=== PATIENT | female | born 1995 | race Caucasian/White ===

== ENCOUNTER 2018-08-13 07:14 | Inpatient (IN) | payer BC ==
--- NOTE | 2018-08-13 07:25 | ED ---
Abdominal Pain/Female - HPI Summary HPI Summary: Pt is a 23 y/o female who presents to the ED c/o abdominal pain. The pain began last night at 23:00, is located in her upper abdomen, and is rated a 9/10 in severity. Pt notes that 4 hours prior to the onset of pain she ate meatloaf and mashed potatoes. She also c/o nausea, but denies any vomiting, diarrhea, or urinary symptoms. She took Gas-X for the pain without relief. Pt denies any prior abdominal surgeries. Her mother had a cholecystectomy. LNMP 2 weeks ago. PMHx anemia. - History of Current Complaint Chief Complaint: EDAbdPain Stated Complaint: UPPER ABD PAIN/BACK PAIN Time Seen by Provider: 08/13/18 07:17 Hx Obtained From: Patient Onset/Duration: Gradual Onset, Lasting Days - last night at 23:00, Still Present Timing: Constant Severity Currently: Severe Pain Intensity: 9 Pain Scale Used: 0-10 Numeric Location: Other - upper abdomen Radiates: No Aggravating Factor(s): Nothing Alleviating Factor(s): Nothing Associated Signs and Symptoms: Positive: Nausea. Negative: Urinary Symptoms, Vomiting, Diarrhea Allergies/Adverse Reactions: Allergies Allergy/AdvReac Type Severity Reaction Status Date / Time No Known Allergies Allergy Verified 08/13/18 07:19 Home Medications: Home Medications Simethicone [Gas-X] 125 mg PO TID PRN 08/13/18 [History Confirmed 08/13/18] PMH/Surg Hx/FS Hx/Imm Hx Endocrine/Hematology History: Reports: Hx Anemia Denies: Hx Diabetes Cardiovascular History: Denies: Hx Hypertension, Hx Pacemaker/ICD Respiratory History: Reports: Hx Asthma Sensory History: Denies: Hx Hearing Aid Psychiatric History: Denies: Hx Panic Disorder - Surgical History Surgery Procedure, Year, and Place: LT ANKLE 02/2015 LIGAMENT REPAIR; Infectious Disease History: No Infectious Disease History: Denies: Traveled Outside the [place] in Last 30 Days - Family History Known Family History: Positive: Other - gallbladder dz - Social History Alcohol Use: None Hx Substance Use: No Substance Use Type: Reports: None Hx Tobacco Use: No Smoking Status (MU): Never Smoked Tobacco Review of Systems Positive: Abdominal Pain, Nausea. Negative: Vomiting, Diarrhea Genitourinary: Negative All Other Systems Reviewed And Are Negative: Yes Physical Exam - Summary Physical Exam Summary: Appearance: Well appearing, no pain distress, morbid obesity Skin: warm, dry, reflects adequate perfusion Head/face: normal Eyes: EOMI, KALA ENT: mucous membranes moist Neck: supple, non-tender Respiratory: CTA, breath sounds present Cardiovascular: RRR, pulses symmetrical Abdomen: soft, epigastric and RUQ tenderness with guarding, no rebound Bowel Sounds: present Musculoskeletal: normal, strength/ROM intact Neuro: normal, sensory motor intact, A&Ox3 Triage Information Reviewed: Yes Vital Signs On Initial Exam: Initial Vitals Temp Pulse Resp BP Pulse Ox 96.6 F 95 18 161/79 100 08/13/18 07:15 08/13/18 07:15 08/13/18 07:15 08/13/18 07:15 08/13/18 07:15 Vital Signs Reviewed: Yes Diagnostics - Vital Signs Vital Signs Temp Pulse Resp BP Pulse Ox 08/13/18 07:15 96.6 F 95 18 161/79 100 - Laboratory Result Diagrams: 08/13/18 08:32 08/13/18 08:32 Lab Statement: Any lab studies that have been ordered have been reviewed, and results considered in the medical decision making process. - Ultrasound No standard instances Ultrasound Interpretation Completed By: Radiologist Summary of Ultrasound Findings: Gallbladder US: 1. LIMITED STUDY. 2. HEPATOMEGALY WITH FATTY INFILTRATION OF THE LIVER. 3. CHOLELITHIASIS WITHOUT SONOGRAPHIC FEATURES OF ACUTE CHOLECYSTITIS. 4. THERE IS DILATATION OF THE COMMON DUCT UP TO 1.2 CM. ED physician reviewed radiology report. Abdominal Pain Fem Course/Dx - Course Course Of Treatment: Nurse's notes reviewed. Patient with epigastric discomfort and some right upper quadrant pain. Mild pallor confirmed with anemia with hemoglobin 7.6. Patient has a history of anemia that was never fully investigated. She does occasionally have heavy periods. Epigastric discomfort could represent peptic ulcer disease. No melena. Gallbladder ultrasound shows dilated biliary duct but LFTs are normal. GI consultation is pending. Discussed with hospitalist who will admit. - Diagnoses Differential Diagnosis: Positive: Bowel Obstruction, Gall Bladder Disease, Peptic Ulcer Disease, , Renal Colic, Urinary Tract Infection Provider Diagnoses: Anemia, Epigastric abdominal pain, Dilated bile duct, Morbid obesity - Provider Notifications Discussed Care Of Patient With: Dima Benavidez Time Discussed With Above Provider: 09:33 Instructed by Provider To: Admit As Inpatient - Dr. Benavidez will come see the pt in the ED. Discharge - Sign-Out/Discharge Documenting (check all that apply): Patient Departure - Admit Patient Received Moderate/Deep Sedation with Procedure: No - Discharge Plan Condition: Fair Disposition: ADMITTED TO [facility] - Billing Disposition and Condition Condition: FAIR Disposition: Admitted to [facility] - Attestation Statements Document Initiated by Sorayaibe: Yes Documenting Scribe: Aliya Man Provider For Whom Cathy is Documenting (Include Credential): Roberth Moore MD Scribe Attestation: Aliya Peace, scribed for Roberth Moore MD on 08/13/18 at 1253. Scribe Documentation Reviewed: Yes Provider Attestation: The documentation as recorded by the Aliya [email or web address] accurately reflects the service I personally performed and the decisions made by Roberth bautista MD Status of Scribe Document: Viewed
[2018-08-13] MEDS ORDERED: NS 0.9% 1000 ML** 1,000 ML IV ONE (07:26)
[2018-08-13] MEDS ORDERED: Famotidine TAB* 20 MG PO ONE (07:27)
[2018-08-13] MEDS ORDERED: Al Hydrox/Mg Hydrox/Simet LIQ* 30 ML UDC PO ONE (07:27)
[2018-08-13] MEDS ORDERED: Ketorolac INJ* 30 MG/ML 1 ML VIAL IV PUSH ONE (07:27)
[2018-08-13] MEDS ORDERED: Ondansetron INJ* 2 MG/ML VIAL IV ONE (07:27)
[2018-08-13 08:44] LABS: ABS Basophils 0 10^3/ul (0-0.2); ABS Eosinophils 0.1 10^3/ul (0-0.6); ABS Lymphocytes 0.9 10^3/ul (1.0-4.8); ABS Monocytes 0.2 10^3/ul (0-0.8); ABS Neutrophils 3.5 10^3/ul (1.5-7.7); ABS Nucleated RBC 0 10^3/ul; Eosinophil % 1.4 %; Hematocrit 25 % (35-47); Hemoglobin 7.8 g/dl (12.0-16.0); Lymphocyte % 18.8 %; Mean Corpuscular HGB Conc 31 g/dl (31-36); Mean Corpuscular Hemoglobin 24 pg (27-31); Mean Corpuscular Volume 78 fL (80-97); Mean Platelet Volume 7.2 fL (7.4-10.4); Nucleated Red Blood Cells % 0.1; Platelet Count 297 10^3/ul (150-450); Red Blood Count 3.21 10^6/ul (4.00-5.40); Red Cell Distribution Width 19 % (10.5-15); White Blood Count 4.7 10^3/ul (3.5-10.8)
[2018-08-13 09:04] LABS: ALT 41 U/L (7-52); AST 23 U/L (13-39); Albumin 4.1 g/dL (3.2-5.2); Albumin/Globulin Ratio 1.2 (1-3); Alkaline Phosphatase 68 U/L (34-104); Anion Gap 8 mmol/L (2-11); BUN/Creatinine Ratio 14.8 (8-20); Blood Urea Nitrogen 9 mg/dL (6-24); C Reactive Protein 18.24 mg/L (<8.01); CO2 Carbon Dioxide 24 mmol/L (22-32); Chloride 102 mmol/L (101-111); EGFR African American 144.6 (>60); EGFR Non-African American 119.5 (>60); Globulin 3.5 g/dL (2-4); Glucose 129 mg/dL (70-100); Potassium 4.2 mmol/L (3.5-5.0); Sodium 134 mmol/L (135-145); Total Protein 7.6 g/dL (6.4-8.9)
[2018-08-13 09:08] LABS: HCG Pregnancy < 0.60 mIU/mL
[2018-08-13 09:45] LABS: Urine Appearance Clear; Urine Bacteria Absent (Absent); Urine Bilirubin Negative (Negative); Urine Blood 3+ (Negative); Urine Color Yellow; Urine Glucose Negative (Negative); Urine Ketones Negative (Negative); Urine Nitrite Negative (Negative); Urine Protein Negative (Negative); Urine Red Blood Cell 3+(>10/hpf) (Absent); Urine Squamous Epithelial Cell Present (Absent); Urine Urobilinogen Negative (Negative); Urine White Blood Cell 2+(11-20/hpf) (Absent)
[2018-08-13] MEDS ORDERED: Acetaminophen TAB* 325 MG PO PRN (10:10)
[2018-08-13] MEDS ORDERED: Ondansetron INJ* 2 MG/ML VIAL IV PRN (10:10)
[2018-08-13] MEDS ORDERED: Al Hydrox/Mg Hydrox/Simet LIQ* 30 ML UDC PO PRN (10:10)
[2018-08-13 10:19] LABS: Corrected Retic Count 3.2 % (0.5-1.5); Hematocrit for Retic CNT 25 % (35-47); Immature Retic Fraction 0.58; RBC Retic Count 3.19 10^6/ul (4.6-6.2)
[2018-08-13] MEDS ORDERED: Albuterol HFA INHALER* 8 gm MDI INH PRN (10:27)
[2018-08-13 10:30] LABS: % Iron Saturation 4 % (15-55); Iron 22 ug/dL (50-212); Total Iron Binding Capacity 584 mcg/dL (250-450); Transferrin 417 mg/dL (203-362)
[2018-08-13 10:45] LABS: TSH (Thyroid Stimulating Horm) 4.11 mcIU/mL (0.34-5.60)
[2018-08-13 10:50] LABS: Ferritin 6.7 ng/mL (11-307)
--- NOTE | 2018-08-13 11:48 | HP ---
ADMISSION HISTORY AND PHYSICAL: DATE OF ADMISSION: 08/13/18 PRIMARY CARE PROVIDER: Mackenzie Almaguer NP in [facility]. Her telephone is [phone], her fax is [phone]. HEALTHCARE PROXY: Mother present during admission H and P. CODE STATUS: Full. HISTORY OBTAINED: From interview with the patient, also discussion with Mackenzie Almaguer. RELIABILITY: Fair. CHIEF COMPLAINT: Abdominal pain. HISTORY OF PRESENT ILLNESS: This is a 23-year-old female with past medical history of iron-deficiency anemia, has been on and off iron usually limited by side effects, but has been on the slow release for the last 6 months. She had been in her usual state of health and then last night she ate dinner on 7 p.m. and around 11 p.m. developed crescendo abdominal pain that then became constant , described as stabbing and burning, radiating through her stomach towards her back, described as 10/10. She did have some nausea and some shortness of breath and lightheadedness, but no vomiting. Her stools were yellow but then had become loose. She has had much more flatulence last night than this morning but now improving. She presented to the emergency room, received Maalox , Zofran, Pepcid, and Toradol and was seen by this author. Pain was largely improved down from a 10-4/10 and was comfortable in bed. She reports she had anemia in the past as low enough that caused shortness of breath approximately 7 years prior. She has declined pelvic ultrasound according to Mackenzie Almaguer. She describes heavy period lasting 6 to 7 days. She 1, 2, or 3 pads per day , but does produce clots. She tried oral contraceptives, but felt ill with nausea and vomiting and has discontinued them. She denied bright red blood per rectum and melena. I did discuss with Mackenzie Almaguer who reported the patient's last hemoglobin was 9.3 with hematocrit of 37 and an iron of 32 in September 2016. Additionally, at that time her TSH was 5.51. The patient has had no additional followup since that time. PAST MEDICAL HISTORY: Include; 1. Mild intermittent asthma. 2. She had a left tib-fib fracture. 3. Left ankle surgery. 4. Iron-deficiency anemia. MEDICATIONS: Albuterol p.r.n. and slow release iron. ALLERGIES: No known drug allergies. FAMILY HISTORY: Her grandfather had CAD and maternal grandmother had lung cancer. 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 She has no tobacco history. She drinks approximately 10 drinks of alcohol per week. No illicits. REVIEW OF SYSTEMS: As per HPI, otherwise all other systems negative. PHYSICAL EXAMINATION GENERAL: Sitting up in bed, interactive, pleasant, in no apparent distress. VITAL SIGNS: In the emergency room, 143/89, heart rate 79, respiratory rate is 18, she is 97% on room air. T-max 97.5. T-low is 96.6. HEENT: Oropharynx is clear. She has moist mucous membranes. Sclerae are anicteric. LUNGS: Clear to auscultation. HEART: She has regular rate and rhythm. She has no murmurs, rubs, or gallops. ABDOMEN: Soft. Positive bowel sounds. Nondistended. She has tenderness to deep palpation in the epigastric region. No rebound or guarding. EXTREMITIES: Warm and well-perfused. No clubbing, cyanosis, or edema. NEUROLOGIC: Cranial nerves II through XII are intact. PSYCH: She has no apparent anxiety, agitation, or depression. LABORATORY DATA: Data reviewed. Gallbladder ultrasound notable for common bile duct 1.2 cm without appreciable intrahepatic biliary ductal dilatation. The gallbladder was distended with shadowing echogenic foci consistent with gallstones, but no gallbladder wall thickening or pericholecystic fluid. ASSESSMENT AND PLAN: This is a 23-year-old female presenting with abdominal pain found with iron-deficiency anemia. 1. Abdominal pain associated with crescendo abdominal pain, improved with Maalox and Toradol in the setting of loose stools as well as increased flatulence. The highest on my differential is a gastroenteritis in the setting of the loose stools. Lower risk of pancreatitis in the setting of normal limit of lipase. No evidence of cholecystitis on right upper quadrant. Doubt appendicitis with rapid improvement in pain and location and quality of pain. We will forgo CAT scan now, observe the patient in the hospital overnight. Plan on CAT scan if pain does not resolve or worsens. N.p.o. at this time as ED consult and Gastroenterology. No plan for endoscopy. We will advance to clear diet then advance as tolerated. I believe the anemia and abdominal pain are separate issues given the chronicity of her anemia. 2. Microcytic anemia, add iron labs including ferritin and reticulocyte count to ED labs. Repeat hemoglobin and hematocrit in the morning, type and cross. GI has been consulted. The patient has declined pelvic ultrasound in the past. We recommend again at this time. The patient is to consider. 3. Obesity, noted stable. 4. Mild intermittent asthma, stable, on albuterol p.r.n. 5. Dilated common bile duct of 1.2 cm - noted, no intervention at this time discussed with Mackenzie Almaguer as well. 6. Code status is full. 7. DVT prophylaxis, low risk, ambulate ad shaye. 8. History of elevated TSH 5.51 in September 2016, add TSH to ED labs as well and follow. [id number]/[facility] #: [id number] ZARA
--- NOTE | 2018-08-13 18:54 | CONS ---
GASTROENTEROLOGY CONSULT: DATE OF CONSULT: 08/13/18 CONSULTING PHYSICIANS: Dr. Dima Benavidez; Mackenzie Almaguer NP, [place], [place]. REASON FOR CONSULT: Epigastric pain and profound microcytic anemia. HISTORY: This 23-year-old woman came to the emergency room with unrelenting upper abdominal pain that she said radiated along the right costal margin and to the back. It started around 11 o'clock last night. She had felt fine all day long and had a typical dinner of meatloaf, mashed potatoes, and then a couple of cookies around 8 p.m. She was okay until 10:30 or 11 when she noted this severe pain and could not find a comfortable position. It was there all night. She did have a normal solid bowel movement during the day and then another at 3 a.m. There was no blood in it. She characteristically does not see any blood. She has never had anything like this before. She does not have stomach problems usually and does not take any acid blockers. She denies acid indigestion or heartburn. She does take some Advil every 2 weeks or about twice a month for headache. It always works. She never uses an aspirin product. She has been anemic for quite some time and cannot tolerate taking regular oral iron. A cousin who is a pharmacist from [place] suggested that she take slow iron and she began that about 6 months ago, she says. Her last recorded iron in the [facility] system was hemoglobin 9.25 September 2016 when she was last seen at her primary office. Her menses are 6 to 7 days, not felt by her to be all that profuse. She had not had a pelvic ultrasound in quite some time and report is pending on one now. In the emergency room, her labs showed a normal white count of 4.7, platelets 297, LFTs normal, and profound anemia with hemoglobin 7.8, MCV 78. Iron saturation 4% (22 iron and TIBC 584 with ferritin 6.7). LFTs are normal. Albumin is 4.1. PAST MEDICAL HISTORY: 1. Morbid obesity. 2. Asthma - she has an inhaler for p.r.n. use. SOCIAL HISTORY: She lives in [place]. She is a student. Her mother accompanies her today. Her brother works in the emergency room and another relative is an RN in the intensive care unit. REVIEW OF SYSTEMS: No history of cardiac, hepatic, or renal disease. She has never had syncope or seizures. Her bowel habit is regular daily and without any bleeding. She has had no recent fractures. PHYSICAL EXAM: She is a somewhat pale, morbidly obese woman, lying in bed. Her mother is with her, assisting in the history. HEENT exam shows no icterus. Mucous membranes are pale, but otherwise normal. She has no adenopathy. Her lungs are clear, but breath sounds are distant. They are symmetric. Heart sounds are regular. Breast and pelvic Exams: Deferred. Rectal: Deferred. The abdomen is obese with normal distant bowel sounds and panniculus and there is no focal tenderness. She says she is hungry. Extremities show symmetric obesity and 1+ pitting edema at the ankles. Popliteal pulse was intact. DIAGNOSTIC STUDIES: Ultrasound - right upper quadrant shows gallstones and a 12 mm common duct. The liver is large and steatotic. IMPRESSION: Abrupt abdominal pain, which is clinically consistent with biliary colic and the ultrasound would tend to confirm that. Her hemoglobin is low enough to be a potential issue in formulating a surgical plan. Intravenous iron would be an attractive option and could be an accelerated schedule over the next several weeks. [id number]/[facility] #: [id number] [facility]
[2018-08-13] MEDS: Ketorolac INJ* 30 MG/ML 1 ML VIAL IV PUSH PRN (19:55)
[2018-08-14] MEDS: Iron Sucrose* 200 MG in NS 0.9% 100 ML* 100 ML IVPB SCH (01:09)
[2018-08-14 06:55] LABS: ABS Basophils 0 10^3/ul (0-0.2); ABS Eosinophils 0.1 10^3/ul (0-0.6); ABS Lymphocytes 0.8 10^3/ul (1.0-4.8); ABS Monocytes 0.2 10^3/ul (0-0.8); ABS Neutrophils 1.6 10^3/ul (1.5-7.7); ABS Nucleated RBC 0 10^3/ul; Eosinophil % 2.8 %; Hematocrit 21 % (35-47); Hemoglobin 6.4 g/dl (12.0-16.0); Lymphocyte % 31.1 %; Mean Corpuscular HGB Conc 31 g/dl (31-36); Mean Corpuscular Hemoglobin 24 pg (27-31); Mean Corpuscular Volume 77 fL (80-97); Nucleated Red Blood Cells % 0.2; Platelet Count 209 10^3/ul (150-450); Red Blood Count 2.67 10^6/ul (4.00-5.40); Red Cell Distribution Width 18 % (10.5-15); White Blood Count 2.7 10^3/ul (3.5-10.8)
[2018-08-14 07:08] LABS: BUN/Creatinine Ratio 14.9 (8-20); Calcium 8.4 mg/dL (8.6-10.3); EGFR African American 129.8 (>60); EGFR Non-African American 107.2 (>60); Potassium 4.2 mmol/L (3.5-5.0)
[2018-08-14] MEDS: Ketorolac INJ* 30 MG/ML 1 ML VIAL IV PUSH PRN (07:45)
[2018-08-14] MEDS ORDERED: Diatrizoate Meg/Sod(CONTRAST) 30 ML ORAL.SOLN PO ONE (07:49)
[2018-08-14 13:50] LABS: Hematocrit 25 % (35-47); Hemoglobin 7.7 g/dl (12.0-16.0)
--- NOTE | 2018-08-14 14:36 | PN ---
Subjective Date of Service: 08/14/18 Interval History: No pain overnight. Not completely gone and "starting to hurt" again this AM No SOB, LH, chest pain +flatus, no BM No e/o bleeding from other sources Objective Active Medications: Acetaminophen (Tylenol Tab*) 650 mg PO Q4H PRN PRN Reason: FEVER/PAIN Last Admin: 08/13/18 11:50 Dose: 650 mg Al Hydrox/Mg Hydrox/Simethicone (Maalox Plus*) 30 ml PO Q6H PRN PRN Reason: INDIGESTION Albuterol (Ventolin Hfa Inhaler*) 1 puff INH Q4H PRN PRN Reason: SOB/WHEEZING Iron Sucrose 200 mg/ Sodium (Chloride) 110 mls @ 110 mls/hr IVPB Q48HR RIZWAN Stop: 08/25/18 00:59 Last Admin: 08/14/18 01:09 Dose: 110 mls/hr Ondansetron HCl (Zofran Inj*) 4 mg IV Q4H PRN PRN Reason: NAUSEA/VOMITING Tramadol HCl (Ultram*) 50 mg PO Q6H PRN PRN Reason: PAIN Vital Signs - 8 hr 08/14/18 08/14/18 07:29 08:00 Temperature 98.4 F Pulse Rate 93 Respiratory 16 18 Rate Blood Pressure 141/59 (mmHg) O2 Sat by Pulse 96 Oximetry Oxygen Devices in Use Now: None Appearance: NAD Eyes: No Scleral Icterus, PERRLA, - - pale conjunctiva Ears/Nose/Mouth/Throat: NL Teeth, Lips, Gums, Clear Oropharnyx Neck: NL Appearance and Movements; NL JVP, Trachea Midline Respiratory: Symmetrical Chest Expansion and Respiratory Effort, Clear to Auscultation Cardiovascular: RRR Abdominal: NL Sounds; No Tenderness; No Distention, No Hepatosplenomegaly Lymphatic: No Cervical Adenopathy Extremities: No Edema Skin: No Rash or Ulcers Neurological: Alert and Oriented x 3 Result Diagrams: 08/14/18 13:10 08/14/18 06:33 Microbiology and Other Data: Microbiology 08/13/18 09:25 Urine Culture - Final Urine No Growth (<1,000 CFU/mL) Assess/Plan/Problems-Billing Assessment: 23 F h/o iron def anemia p/w abdominal pain found with worsening anemia - Patient Problems (1) Anemia Comment: Iron very low, c/w IV iron Menometrorrhagia suspected. Requested ob/gyn physician consult Drop in H/H quite fast to be explained by iron def. Stool occult pending, CT abd /pelvis wnl. Repeat H/H with approriate bump. GI following. Trend H/H again in the morning (2) Mild intermittent asthma Comment: stable, no interventions (3) Abdominal pain Comment: Appreciate GI c/s. Consistent with biliary colic. Will not pursue surgery at this point until anemia stable
[2018-08-14] MEDS: traMADol TAB* 50 MG PO PRN (18:00)
--- NOTE | 2018-08-14 20:12 | PN ---
Progress Note - Progress Note Date of Service: 08/14/18 Note: GI Follow-Up Note IE: Hgb (and WBC) dropped to 6.4/21 (2.7). Given 1 unit of blood. Also received IV iron. S: Patient complains of ongoing epigastric > RUQ pain, although this is much improved compared to admission. Some fullness and gas discomfort. No nausea/ vomiting or GERD. She ate some food today without increase in the pain. Noted hematuria earlier today. No bowel movement yet today. Denies any diarrhea, constipation, melena or hematochezia at baseline. O: VS: AF, HR WNL, BP mildly hypertensive GEN: Pleasant young woman. NAD. PULM: Breathing comfortably ABD: Obese. Soft, ND. Tender in epigastrium. No significant RUQ tenderness. No rebound tenderness or guarding. Labs reviewed. Hgb/Hct 7.7/25 after 1 unit of blood. Iron studies c/w iron deficiency. UA with +++blood. CT abdomen/pelvis this morning: hepatic steatosis, hepatosplenomegaly, cholelithiasis (without evidence of biliary dilation or cholecystitis), diverticulosis. Pancreas normal appearing. A/P: Ms Arcos is a 23yF with history of iron deficiency anemia, who is admitted with acute RUQ/epigastric pain, now improving but not resolved, and acute on chronic anemia. No overt GI bleeding noted. Patient mentions seeing some hematuria earlier today. CT w/o acute findings or explanation for symptoms or labs. 1. Abdominal Pain: - Gallstones seen on imaging raising concern for biliary colic vs cholecystitis. However, I would expect biliary colic to have resolved by now. No signs of cholecystitis on US or CT. Differential also includes PUD given significant epigastric pain/tenderness. - NPO after MN. Plan for EGD tomorrow, likely in the afternoon. - Start PPI QD for now. 2. Anemia: Iron deficient on labs. Some hematuria noted by patient and on UA. No overt GI bleeding noted by patient. History of possibly heavy periods lasting 6-7 days. Unclear why the acute drop in Hgb seen today, although this may be partially dilution effect 2/2 IV fluids. - Await fecal occult blood test - EGD as above for work-up of abdominal pain. Consider colonoscopy in outpatient as part of work-up for ARJUN. - IV iron 3. Hepatic Steatosis: - Should have follow-up in GI clinic GI will continue to follow. Chikis Poon MD Gastroenterology
[2018-08-14] MEDS: Morphine VIAL* 4 MG/ML VIAL (1 ml vial) IV PRN (20:27)
--- NOTE | 2018-08-14 20:36 | CONSULT ---
Consult Consult: [facility] consultation HPI: GUZMAN MCCURDY is a 23yo G0 admitted yesterday with acute abdominal pain and finding of severe anemia. She reportedly has been followed by her PCP for several years with the anemia, although she has not been fully compliant in the evaluation. [facility] consulted in case her menstrual bleeding might be causing/worsening her anemia. Pt reports she has had no change in her menses for many years. She has periods every month, and she never misses one. Bleeding lasts for 6-7 days, but it is never heavy. She reports needing to change a pad about once per day. She also has minimal cramping. She does report some intermenstrual spotting/ light bleeding which is very random and annoying, but never heavy. Pt does report she tried OCPs about 5 yrs ago for contraception when she had a steady partner. She used them for about 3 months, but she stopped because she had severe pain with every period while taking them. Nausea was present but not the worst part. PMH: reviewed, see H&P PSH: reviewed, see H&P [employer] [facility]: currently not sexually active, no contraception. Vital Signs: Temp Pulse Resp BP Pulse Ox 98.3 F 81 20 164/80 99 08/14/18 15:38 08/14/18 15:38 08/14/18 20:27 08/14/18 15:38 08/14/18 15:38 Gen: NAD, very pleasant, morbidly obese, good historian Neuro: A&O x3 Pelvic ultrasound: normal pelvis, EMS 1.9cm CT: see report, pelvis normal Impression/Plan: 23yo woman with chronic and now severe anemia, in addition to abdominal pain. My impression is that her menstrual bleeding is quite light and very unlikely the cause of her anemia. Obviously, any bleeding can exacerbate her anemia, so we discussed the option of trying OCPs or perhaps a progesterone-based IUD to decrease the bleeding even more. However, I do not think this is urgent at this point. Also, I would not start OCPs until her next period. She is currently midcycle. Pt can f/u with PCP to discuss these options further or she is welcome to follow up with [facility] if she desires after discharge. Otherwise, current hospital providers will continue to pursue other possible causes for her bleeding. Thank you for this consult. Please contact [facility] addiction nurse with any further questions/concerns. Approx 20 min were spent directly with the patient.
[2018-08-15 06:16] LABS: ABS Basophils 0 10^3/ul (0-0.2); ABS Eosinophils 0.2 10^3/ul (0-0.6); ABS Lymphocytes 1.3 10^3/ul (1.0-4.8); ABS Monocytes 0.2 10^3/ul (0-0.8); ABS Neutrophils 1.6 10^3/ul (1.5-7.7); ABS Nucleated RBC 0 10^3/ul; Eosinophil % 5.4 %; Hematocrit 23 % (35-47); Hemoglobin 7.2 g/dl (12.0-16.0); Lymphocyte % 38.2 %; Mean Corpuscular HGB Conc 31 g/dl (31-36); Mean Corpuscular Hemoglobin 24 pg (27-31); Mean Corpuscular Volume 77 fL (80-97); Mean Platelet Volume 7.2 fL (7.4-10.4); Nucleated Red Blood Cells % 0.3; Platelet Count 236 10^3/ul (150-450); Red Blood Count 3.03 10^6/ul (4.00-5.40); Red Cell Distribution Width 19 % (10.5-15); White Blood Count 3.3 10^3/ul (3.5-10.8)
[2018-08-15] MEDS ORDERED: Iron Sucrose* 200 MG in NS 0.9% 100 ML* 100 ML IVPB SCH (09:00)
[2018-08-15] MEDS: NS 0.9% 1000 ML** 1,000 ML IV SCH ×2 (12:42→22:51)
[2018-08-15] MEDS ORDERED: fentaNYL* 50 MCG/ML 2 ML VIAL (100 MCG VIAL) ONE (13:12)
[2018-08-15] MEDS ORDERED: Midazolam* 1 MG/ML 10 ML VIAL (10 MG) ONE (13:12)
--- NOTE | 2018-08-15 14:07 | PN ---
Progress Note - Progress Note Date of Service: 08/15/18 Note: GI Brief EGD Note Difficult to sedate, hypoxia limited exam but was able to visualize well. Small sliding Hiatal hernia, no edgardo erosions No fresh or old blood No PUD. No cause of anemia identified. Unable to sample duodenum for anemia due to hypoxia/intolerance of sedation. Rec: Needs colonoscopy at some point, outpatient if stable. Will likely need anesthesia assist. Check TTG/Total Iga hemoglobin electrophoresis full liquids, then advance as tolerated continue to work up other etiologies of anemia If ongoing pain, consider surgical opinion for GB. Gabriel Reddy 08/15/18 1886
--- NOTE | 2018-08-15 14:37 | PN ---
Subjective Date of Service: 08/15/18 Interval History: Pain continues but is much improved since admission Currently NPO and pain present Did receive morphine overnight Pt reports gross hematuria starting yesterday afternoon after receipt of blood No clots, urine is red No SOB, LH, CP No BMs, +flatus Objective Active Medications: Acetaminophen (Tylenol Tab*) 650 mg PO Q4H PRN PRN Reason: FEVER/PAIN Last Admin: 08/13/18 11:50 Dose: 650 mg Al Hydrox/Mg Hydrox/Simethicone (Maalox Plus*) 30 ml PO Q6H PRN PRN Reason: INDIGESTION Albuterol (Ventolin Hfa Inhaler*) 1 puff INH Q4H PRN PRN Reason: SOB/WHEEZING Iron Sucrose 200 mg/ Sodium (Chloride) 110 mls @ 110 mls/hr IVPB Q48HR [facility] Stop: 08/25/18 00:59 Last Admin: 08/14/18 01:09 Dose: 110 mls/hr Sodium Chloride (Ns 0.9% 1000 Ml) 1,000 mls @ 125 mls/hr IV PER RATE [facility] Stop: 08/16/18 19:59 Last Admin: 08/15/18 12:42 Dose: 125 mls/hr Morphine Sulfate (Morphine Vial*) 4 mg IV Q4H PRN PRN Reason: PAIN - MILD Last Admin: 08/14/18 20:27 Dose: 4 mg Ondansetron HCl (Zofran Inj*) 4 mg IV Q4H PRN PRN Reason: NAUSEA/VOMITING Last Admin: 08/14/18 20:17 Dose: 4 mg Tramadol HCl (Ultram*) 50 mg PO Q6H PRN PRN Reason: PAIN Last Admin: 08/14/18 18:00 Dose: 50 mg Trimethoprim/Sulfamethoxazole (Bactrim Ds 800/160 Tab*) 1 tab PO BID [facility] Vital Signs - 8 hr 08/15/18 08/15/18 08/15/18 07:14 07:38 08:00 Temperature 97.3 F 98.4 F Pulse Rate 89 80 Respiratory 18 16 16 Rate Blood Pressure 152/76 136/61 (mmHg) O2 Sat by Pulse 99 Oximetry 08/15/18 12:13 Temperature 97.3 F Pulse Rate 88 Respiratory 16 Rate Blood Pressure 152/73 (mmHg) O2 Sat by Pulse 96 Oximetry Oxygen Devices in Use Now: None Appearance: NAD Eyes: No Scleral Icterus, PERRLA Ears/Nose/Mouth/Throat: NL Teeth, Lips, Gums, Clear Oropharnyx Neck: NL Appearance and Movements; NL JVP, Trachea Midline Respiratory: Symmetrical Chest Expansion and Respiratory Effort, Clear to Auscultation Cardiovascular: NL Sounds; No Murmurs; No JVD, RRR Abdominal: - - soft, mild TTP epigastrum Lymphatic: No Cervical Adenopathy Extremities: No Edema Skin: No Rash or Ulcers Neurological: Alert and Oriented x 3 Result Diagrams: 08/15/18 05:30 08/14/18 06:33 Microbiology and Other Data: Microbiology 08/13/18 09:25 Urine Culture - Final Urine No Growth (<1,000 CFU/mL) Assess/Plan/Problems-Billing Assessment: 23 F h/o iron def anemia p/w abdominal pain found with worsening anemia - Patient Problems (1) Hematuria Comment: Only source of active blood loss d/w Dr. Lombardo who is concerned for hemorrhagic cystitis Start bactrim and IV normal saline If bleeding continues tomorrow will need a CT urogram Would only consider cystoscopy as o/p or after hemorrhage resolved because it will limit visibility/utility (2) Anemia Comment: Iron very low c/w IV iron urine only source menses not thought to be etiology EGD unrevealing for additional source but will need cscope as outpatient with anesthesia c/w bactrim repeat H/H in AM check TTG IgA and IgG in AM Check bili and LDH in AM (3) Mild intermittent asthma Comment: stable, no interventions (4) Abdominal pain Comment: Appreciate GI c/s. Biliary colic seems less likely - pain constant and not associated with food Suspect cystitis with hemorrhage currently Hold on surgery eval
--- NOTE | 2018-08-15 16:20 | PRO ---
CC: Dr. Dima Benavidez; NIRALI Mccain * DATE OF PROCEDURE: 08/15/2018. PROCEDURE PERFORMED: Complete esophagogastroduodenoscopy. INDICATION FOR PROCEDURE: Microcytic anemia. MEDICATIONS GIVEN: 10 mg IV Midazolam and 100 mcg IV Fentanyl. DESCRIPTION OF PROCEDURE: After the EGD procedure, including the risks, benefits, and alternatives, with the risks not limited to perforation, surgery, missed lesions, and/or were explained to the patient, written and informed consent was obtained. IV medication was given and a bite-block was placed between the teeth. The adult Olympus gastroscope was then inserted into the patient's mouth, into the oropharynx at the distal GE junction. The esophagus was grossly normal in appearance. The scope was advanced through the lower esophageal sphincter, into the stomach. The antrum was grossly normal in appearance. On retroflexion, a small sliding hiatal hernia, 1 to 2 cm, was visualized. There was no gross Jose erosions or leisa ulceration. The scope was then advanced through the widely patent pylorus into the duodenal bulb , C-loop and distal duodenum. These were normal in appearance. I did wish to sample given her anemia, but the patient did have some mild hypoxia that prevented further evaluation, along with intolerance to moderate sedation. Her lowest SpO2 was 85 percent. The scope was then removed from the patient. She tolerated the procedure well. She returned to the recovery room in stable condition. IMPRESSION: 1. Complete esophagogastroduodenoscopy. 2. No cause of anemia identified. 3. Small sliding hiatal hernia. 4. No Jose erosions. 5. No fresh oral blood. 6. Probable sleep apnea. RECOMMENDATIONS: Given intolerance and hypoxia with moderate sedation, recommend further procedures be done with anesthesia assistance. In addition, no gross signs of GI bleeding at this point. Since I was unable to sample the duodenum, I will obtain a tissue transglutaminase and total IgA. In addition, her MCV is on the lower side. Will plan on hemoglobin electrophoresis to rule out a hereditary cause of anemia. Finally, the patient should have a colonoscopy, potentially outpatient if continues to be stable and further non- GI causes of anemia should be explored. [id number]/[facility] #: [id number] [facility]
[2018-08-15] MEDS: Morphine VIAL* 4 MG/ML VIAL (1 ml vial) IV PRN (19:43)
[2018-08-15] MEDS: Sulfamethox/Trimethoprim DS 800/160* TAB PO SCH (20:17)
[2018-08-15] MEDS ORDERED: HYDROmorphone INJ1* 1 MG/ML SYRINGE IV SLOW PU ONE (20:48)
[2018-08-15] MEDS: traMADol TAB* 50 MG PO PRN (23:24)
[2018-08-16 07:34] LABS: ABS Basophils 0 10^3/ul (0-0.2); ABS Eosinophils 0.2 10^3/ul (0-0.6); ABS Lymphocytes 0.9 10^3/ul (1.0-4.8); ABS Monocytes 0.2 10^3/ul (0-0.8); ABS Neutrophils 1.3 10^3/ul (1.5-7.7); ABS Nucleated RBC 0 10^3/ul; Eosinophil % 6.4 %; Hematocrit 25 % (35-47); Hemoglobin 7.6 g/dl (12.0-16.0); Lymphocyte % 35.2 %; Mean Corpuscular HGB Conc 31 g/dl (31-36); Mean Corpuscular Hemoglobin 24 pg (27-31); Mean Corpuscular Volume 77 fL (80-97); Mean Platelet Volume 6.8 fL (7.4-10.4); Nucleated Red Blood Cells % 0.3; Platelet Count 228 10^3/ul (150-450); Red Blood Count 3.17 10^6/ul (4.00-5.40); Red Cell Distribution Width 18 % (10.5-15); White Blood Count 2.6 10^3/ul (3.5-10.8)
[2018-08-16 07:51] LABS: Albumin 3.4 g/dL (3.2-5.2); Albumin/Globulin Ratio 1.2 (1-3); BUN/Creatinine Ratio 11.7 (8-20); Calcium 8.5 mg/dL (8.6-10.3); EGFR African American 110.5 (>60); EGFR Non-African American 91.3 (>60); Globulin 2.8 g/dL (2-4); Indirect Bilirubin 0.3 mg/dL (0.3-1.0); Potassium 4.2 mmol/L (3.5-5.0); Total Bilirubin 0.4 mg/dL (0.2-1.0); Total Protein 6.2 g/dL (6.4-8.9)
[2018-08-16] MEDS: Iron Sucrose* 200 MG in NS 0.9% 100 ML* 100 ML IVPB SCH (09:58)
[2018-08-16] MEDS: Sulfamethox/Trimethoprim DS 800/160* TAB PO SCH (09:58)
[2018-08-16] MEDS: traMADol TAB* 50 MG PO PRN (10:08)
[2018-08-16 14:48] VITALS: BP 160/65
--- NOTE | 2018-08-16 16:39 | PN ---
Progress Note - Progress Note Date of Service: 08/16/18 Note: Time spent on discharge including exam of patient, discussion with pt, mother, nurse, CM, review of EMR and preparation of dischage documents is 50 minutes.
--- NOTE | 2018-08-16 20:44 | DS ---
CC: NIRALI Mccain * DISCHARGE SUMMARY: DATE OF ADMISSION: DATE OF DISCHARGE: 08/16/18 HISTORY OF PRESENT ILLNESS/HOSPITAL COURSE: This 23-year-old woman presented with abdominal pain as well as iron-deficiency anemia. The pain only started a few days ago. This seemed to have improved quite a bit by the time of discharge , although she did take a tramadol on the morning of discharge. This did provide fairly good relief. The patient had marked iron deficiency anemia with iron studies confirming that she had 1 unit of blood transfused here. I note she started taking a slow release iron tablet about 6 to 7 months ago. I am not sure what the dosage is. She did have some bright red blood in her urine. She had abnormal urinalysis. The urine culture showed no growth; however, she is going to take a 7-day course of trimethoprim and sulfamethoxazole. If she still has hematuria at the end of this, then urologic evaluation would be indicated. It is also recommended that she start on oral contraceptive pills to suppress her menses, whether or not heavy menstruation was the primary cause of her iron- deficiency anemia, in any event it is certainly contributing to her iron deficiency. FINAL DIAGNOSES: 1. Possible cystitis. 2. Iron deficiency anemia. 3. Morbid obesity. 4. History of mild intermittent asthma. DISCHARGE MEDICATIONS: 1. Acetaminophen 650 mg every 4 hours p.r.n. 2. Sulfamethoxazole and trimethoprim double strength 1 b.i.d. for a total of 12 tablets as an outpatient. 3. Tramadol 50 mg every 6 hours p.r.n. 4. Simethicone 125 mg t.i.d. 5. The patient will continue on her slow release iron pills as well. She will see her primary care provider to consider oral contraceptive pills to suppress her menses. If she is persistently having hematuria after completing her antibiotic therapy, a urologic referral would be indicated. We will be arranging 2 visits to the [facility] to infuse 200 mg of iron sucrose at each visit. She had 1 such infusion during the hospital stay. DISCHARGE DISPOSITION: Discharged home. DISCHARGE CONDITION: Improved. [id number]/[facility] #: [id number] MTDD
[2018-08-17 18:32] LABS: Tissue Transglutaminase IgA Ab <1.2 U/mL
[2018-08-19 16:24] LABS: Immunoglobulin A 1 mg/dL (61 - 356)
== END 2018-08-16 17:30 | disposition home or self-care (01) | DRG 663 ==
LOC: ED 07:14 → MED 10:10 → OBSVTOIN 08-14 15:00
PROVIDERS: ADMIT Internal Medicine; ATTEND Internal Medicine
PROC: 30233N1 Transfusion of Nonautologous Red Blood Cells into Peripheral Vein, Percutaneous Approach (ICD-10-PCS; principal; 2018-08-14)
PROC: 0DJ08ZZ Inspection of Upper Intestinal Tract, Via Natural or Artificial Opening Endoscopic (ICD-10-PCS; 2018-08-15)
DX: D50.9 Iron deficiency anemia, unspecified (principal); Z68.43 Body mass index [BMI] 50.0-59.9, adult; N30.91 Cystitis, unspecified with hematuria; K44.9 Diaphragmatic hernia without obstruction or gangrene; K76.0 Fatty (change of) liver, not elsewhere classified; E66.01 Morbid (severe) obesity due to excess calories; K80.20 Calculus of gallbladder without cholecystitis without obstruction; R09.02 Hypoxemia; K83.8 Other specified diseases of biliary tract; N92.0 Excessive and frequent menstruation with regular cycle; J45.20 Mild intermittent asthma, uncomplicated; Z82.49 Family history of ischemic heart disease and other diseases of the circulatory system; Z72.89 Other problems related to lifestyle; Z80.1 Family history of malignant neoplasm of trachea, bronchus and lung; Z83.79 Family history of other diseases of the digestive system
CPT/HCPCS: 36415; 74176; 76705; 76830; 80048; 80053; 80076; 81003; 81015; 82728; 82784; 83020; 83516; 83540; 83550; 83605; 83615; 83690; 84443; 84702; 85014; 85018; 85025; 85045; 86140; 86850; 86900; 86901; 86922; 87086; 99156; 99157; 99283; A9270-GY; G0378; J1170; J1756; J1885; J2250; J2270; J2405; J3010; P9040

== ENCOUNTER 2019-03-25 09:11 | Inpatient (IN) | payer BC ==
[~2019-03-25 09:11] MED LIST: Buffered Lidocaine 1% SYRIN* 1 ML/SYRINGE INTRADERM ONE; Lactated Ringers 1000 ML Bag* 1,000 ML IV SCH
--- OUTSIDE RECORDS SUMMARY | 2019-03-25 09:16 | XMS REPORT | Continuity of Care Document ---
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 [phone] Problems Active Problems Provider Date Encounter for insertion of intrauterine Leigh Mcclain MD Onset: 01/08/2019 contraceptive device Anemia Cathy Tran MD Onset: 01/08/2019 Social History Type Date Description Comments Sex Unknown Tobacco Use Start: Unknown Never Smoked Cigarettes ETOH Use Occasionally consumes alcohol Recreational Drug Use Denies Drug Use Tobacco Use Start: Unknown Patient has never smoked Smoking Status Reviewed: 11/27/18 Patient has never smoked Exercise Type/Frequency Exercises regularly walk Seat Belt/Car Seat Always uses seat belt Allergies, Adverse Reactions, Alerts Description No Known Drug Allergies Medications Active Medications SIG Qnty Indications Ordering Provider Date Vitamin B Complex Unknown Vitamin D Unknown Iron (Ferrous Sulfate) Unknown Levothyroxine Sodium Unknown Liletta (52 MG) placed 10/18/18 Unknown Medications Administered in Office Medication SIG Qnty Indications Ordering Provider Date PT SCRN Tbco Id as Non User Leigh Mcclain MD 02/20/2019 Injection PT SCRN Tbco Id as Non User Leigh Mcclain MD 11/27/2018 Injection PT SCRN Tbco Id as Non User Leigh Mcclain MD 10/15/2018 Injection Immunizations Description No Information Available Vital Signs Date Vital Result Comment 02/20/2019 8:20am BP Systolic 153 mmHg BP Diastolic 102 mmHg Height 67.50 inches 5'7.50" Weight 382.00 lb BMI (Body Mass Index) 58.9 kg/m2 Last Menstrual Period 7730934 0 Parity 0 11/27/2018 8:44am BP Systolic 128 mmHg BP Diastolic 88 mmHg Height 67.50 inches 5'7.50" Weight 380.00 lb BMI (Body Mass Index) 58.6 kg/m2 Last Menstrual Period [id number] 0 Parity 0 Results Test Date Facility Test Result H/L Range Note Laboratory test 02/20/2019 [facility] Cytology <pending> [place] [address] [phone] Procedures Date Code Description Status 02/20/2019 54472 Insert Intrauterine Device Completed 10/18/2018 89560 Insert Intrauterine Device Completed Medical Devices Description No Information Available Encounters Type Date Location Provider Dx Diagnosis Office Visit 02/20/2019 [facility] Leigh Mcclain, Z01.411 Encntr for optical lab technician exam 8:30a (general) (routine) w abnormal findings N92.5 Other specified irregular menstruation Z30.430 Encounter for insertion of intrauterine contraceptive device Office Visit 11/27/2018 8:45a [facility] Leigh Mcclain Z30.431 Encounter for MD routine checking of intrauterine contracep dev Office Visit 10/15/2018 3:30p [facility] Leigh Mcclain, N92.5 Other specified MD irregular menstruation Assessments Date Code Description Provider 02/20/2019 Z01.411 Encounter for gynecological examination Leigh Mcclain MD (general) (routine) with abnormal findings 02/20/2019 N92.5 Other specified irregular menstruation Leigh Mcclain MD 02/20/2019 Z30.430 Encounter for insertion of intrauterine Leigh Mcclain MD contraceptive device 11/27/2018 Z30.431 Encounter for routine checking of intrauterine Leigh Mcclain MD contraceptive 10/18/2018 Z30.430 Encounter for insertion of intrauterine Leigh Mcclain MD contraceptive device 10/15/2018 N92.5 Other specified irregular menstruation Leigh Mcclain MD Plan of Treatment 02/20/2019 - Leigh Mcclain MDZ01.411 Encounter for gynecological examination (general) (routine) with abnormal findingsComments:Maintain routine exercise and healthy diet. Try to get adequate sleep at night to improve your overall health (most people need ~8 hours!)Perform periodic breast exams at various times of the month to become familiar with your breast tissue so you are more likely to notice something abnormal. Return for annual exam in 1 year or earlier if concerns arise. Routine cervical cancer screening has changed. Pap smears are no longer done every year for low-risk women. A combination screening with both a pap smear (looking for abnormal cells) and HPV testing are recommended every 3-5 years. It takes many years for normal cells to become abnormal and many more years for the abnormal cells to become cancer. Women should still come for a yearly visit and exam. When there is an abnormal pap smear or +HPV testing more frequent screening is recommended.N92.5 Other specified irregular pjmleawguvaxW12.430 Encounter for insertion of intrauterine contraceptive deviceComments:Sometimes patients experience nausea or dizziness soon after insertion. If this happens, sit/lay down right away to avoid passing out. You may experience irregular bleeding for 3-6 months. This is generally light bleeding or spotting. You may continue to have periods but they should be knifer up thanbefore. Your periods may go away completely or you may have a few days of light bleeding or brownish discharge in place of a period. If you are changing heavy pads more than once an hour, call the office. You may have cramping for a few days to a few weeks. Take 600mg of Ibuprofen and if pain is still severe call the office. Continue current form of control for 1 week.Return for IUD check in6-8 weeks. You should try to check your strings before your appointment. Functional Status Description No Information Available Mental Status Description No Information Available Referrals Description No Information Available
--- OUTSIDE RECORDS SUMMARY | 2019-03-25 09:16 | XMS REPORT | Continuity of Care Document ---
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 Problems Description No Information Available Social History Type Date Description Comments Sex Unknown ETOH Use Occasionally consumes alcohol Tobacco Use Start: Unknown Patient has never smoked Smoking Status Reviewed: 02/19/19 Patient has never smoked Allergies, Adverse Reactions, Alerts Description No Known Drug Allergies Medications Active Medications SIG Qnty Indications Ordering Provider Date Levo-T one by mouth Kemi Woodard MD 12/06/2018 25mcg Tablets daily Slow Release Iron 2 by mouth every Unknown 45mg day Tablets ER Super B Complex Maxi 2 by mouth every Unknown day Tablets Vitamin D3 2 by mouth every Unknown 1000Unit day Capsules Albuterol Sulfate HFA one puff every 6 Unknown hours 108(90Base) mcg/Act Aerosol Immunizations Description No Information Available Vital Signs Date Vital Result Comment 02/19/2019 8:06am Height 68 inches 5'8" Weight 383.25 lb Heart Rate 62 /min BP Systolic Sitting 154 mmHg Lue large cuff BP Diastolic Sitting 108 mmHg Lue large cuff Respiratory Rate 16 /min O2 % BldC Oximetry 97 % BMI (Body Mass Index) 58.3 kg/m2 01/03/2019 7:33am Height 68 inches 5'8" Weight 380.00 lb Heart Rate 68 /min BP Systolic Sitting 130 mmHg Lue large cuff BP Diastolic Sitting 90 mmHg Lue large cuff Respiratory Rate 16 /min O2 % BldC Oximetry 98 % BMI (Body Mass Index) 57.8 kg/m2 Results Description No Information Available Procedures Date Code Description Status 12/09/2018 73315 Sleep Study Unattended,HRT Rate,Oxygen Sat,Resp Completed Effort/Airflow Medical Devices Description No Information Available Encounters Type Date Location Provider Dx Diagnosis Office Visit 02/19/2019 [facility] Ana G47.33 Obstructive sleep 8:00a [facility] ap[facility] (adult) [facility] (pediatric) E66.9 Obesity, unspecified Office Visit 01/03/2019 8:00a [facility] Kemi G47.33 Obstructive sleep [facility] apnea (adult) [facility] (pediatric) Office Visit 12/06/2018 8:00a [facility] Kemi R06.83 Snoring [facility] J45.20 Mild intermittent asthma, uncomplicated Assessments Date Code Description Provider 02/19/2019 G47.33 Obstructive sleep apnea (adult) (pediatric) Ana Flor NP 02/19/2019 E66.9 Obesity, unspecified Ana Flor NP 01/03/2019 G47.33 Obstructive sleep apnea (adult) (pediatric) Kemi Woodard MD 12/09/2018 G47.33 Obstructive sleep apnea (adult) (pediatric) Kemi Woodard MD 12/06/2018 R06.83 Snoring Kemi Woodard MD 12/06/2018 J45.20 Mild intermittent asthma, uncomplicated Kemi Woodard MD Plan of Treatment 02/19/2019 - Ana Flor NPG47.33 Obstructive sleep apnea (adult) ( pediatric)Follow up:3 monthsRecommendations:Please contact your homecare company , [employer] , about trying a different style mask. You can also try using a softer pillow or getting a special CPAP pillow to help the mask stay in place. If you have difficulty with your equipment, or need to replace your mask or hoses,please contact your homecare agency. If you have any further questions, please call the [facility] at If you have any sleepiness while driving you MUST avoid operating a vehicle or machinery. If you feel tired while driving, pulley man and take a nap or switch drivers. If you know you are sleepy and need to go somewhere, arrange for a ride or use public transportation. It is very important to not risk your safety or the safety of others.E66.9 Obesity, unspecifiedRecommendations:It is important to bring your CPAP with you to the hospital when you go for your surgery so you can use it when you sleep. In general, using CPAP will help you feel more well rested, which will help with your weight loss. When you are less tired, you will have more energy to exercise and make good food choices. Many people are able to lessen the severity of their sleep apnea or resolve it entirely with weight loss. Once you are at your goal weight, we can re-test you and see if you still have sleep apnea. You should continue using your CPAP until you have a test that shows your sleep apnea has resolved. Functional Status Description No Information Available Mental Status Description No Information Available Referrals Description No Information Available
[2019-03-25] MEDS ORDERED: Heparin VIAL(*) 5000 UNITS/ML VIAL (FIVE THOUSAND) ONE (10:24)
[2019-03-25] MEDS ORDERED: Buffered Lidocaine 1% SYRIN* 1 ML/SYRINGE INTRADERM ONE (10:25)
[2019-03-25] MEDS ORDERED: ceFAZolin 1 GM ADVAN(*) 1 GM ADDV.VIAL IVPB ONE (10:25)
[2019-03-25] MEDS ORDERED: ceFAZolin 2 GM in NS PREMIX(*) 2 GM/100 ML BAG IVPB ONE (10:25)
[2019-03-25] MEDS ORDERED: fentaNYL* 50 MCG/ML 2 ML VIAL (100 MCG VIAL) ONE ×7 (12:01→17:12)
[2019-03-25] MEDS ORDERED: Midazolam* 1 MG/ML 5 ML VIAL (5 MG) ONE (12:01)
[2019-03-25] MEDS ORDERED: Bupivacaine 0.25% EPI 200,000* 30 ML SDV ONE (12:52)
[2019-03-25] MEDS ORDERED: Famotidine IV* 10 MG/ML 2 ML (20 mg) ONE (12:55)
[2019-03-25] MEDS ORDERED: Rocuronium* 10 MG/ML VIAL ONE (13:15)
[2019-03-25] MEDS ORDERED: Ondansetron INJ* 2 MG/ML VIAL ONE ×2 (13:26→16:40)
[2019-03-25] MEDS ORDERED: Dexamethasone IV* 4 MG/ML 1 ML (4 MG) ONE (13:26)
[2019-03-25] MEDS ORDERED: Propofol* 10 MG/ML 20 ML BTL ONE ×3 (13:26→15:42)
[2019-03-25] MEDS ORDERED: Labetalol IV* 5 MG/ML 20 ML VIAL ONE (13:26)
[2019-03-25] MEDS ORDERED: Lidocaine 2% PF * 5 ML VIAL ONE (14:17)
[2019-03-25] MEDS ORDERED: Acetaminophen IV 1GM/100ML * 100 ML ONE (14:47)
[2019-03-25] MEDS ORDERED: Ketorolac INJ* 30 MG/ML 1 ML VIAL ONE (15:26)
[2019-03-25] MEDS ORDERED: oxyCODONE TAB* 5 MG TAB PO PRN (16:03)
[2019-03-25] MEDS ORDERED: DiMENhydriNATE IV* 50 MG/ML VIAL IV PUSH PRN (16:03)
[2019-03-25] MEDS ORDERED: Levalbuterol 0.63MG/3ML NEB* UNIT OF USE INH PRN (16:03)
[2019-03-25] MEDS ORDERED: diPHENhydraMINE IV* 50 MG/ML 1 ml VIAL (BENADRYL) IV PRN (16:03)
[2019-03-25] MEDS ORDERED: Ondansetron INJ* 2 MG/ML VIAL IV PRN (16:03)
[2019-03-25] MEDS ORDERED: Naloxone* 0.4 MG/ML 1 ML VIAL IV PRN (16:03)
[2019-03-25] MEDS ORDERED: HYDROcodone/ACETAMIN 5-325 MG* 1 TAB PO PRN (16:03)
[2019-03-25] MEDS ORDERED: HYDROmorphone INJ1* 1 MG/ML SYRINGE IV SLOW PU PRN (16:34)
[2019-03-25] MEDS ORDERED: diPHENhydraMINE IV* 50 MG/ML 1 ml VIAL (BENADRYL) SLOW PUSH PRN (16:34)
[2019-03-25] MEDS ORDERED: HYDROmorphone INJ1* 1 MG/ML SYRINGE ONE (16:38)
[2019-03-25] MEDS: HYDROmorphone INJ1* 1 MG/ML SYRINGE IV PRN ×2 (16:40→16:50)
[2019-03-25] MEDS ORDERED: Albuterol HFA INHALER* 8 gm MDI INH PRN (16:41)
[2019-03-25] MEDS ORDERED: DiMENhydriNATE IV* 50 MG/ML VIAL ONE (16:45)
[2019-03-25] MEDS ORDERED: HYDROmorphone INJ* 0.5 MG/0.5 ML SYRINGE IV SLOW PU PRN (16:47)
[2019-03-25] MEDS: fentaNYL* 50 MCG/ML 2 ML VIAL (100 MCG VIAL) IV PRN ×4 (16:55→17:29)
[2019-03-25] MEDS: HYDROmorphone INJ1* 1 MG/ML SYRINGE IV SLOW PU PRN ×2 (18:55→22:26)
[2019-03-25] MEDS: Famotidine IV* 10 MG/ML 2 ML (20 mg) IV SLOW PU SCH (20:32)
[2019-03-25] MEDS: Ondansetron INJ* 2 MG/ML VIAL IV PRN (20:35)
[2019-03-25] MEDS: Heparin VIAL(*) 5000 UNITS/ML VIAL (FIVE THOUSAND) SUBCUT SCH (22:26)
--- NOTE | 2019-03-25 22:53 | OP ---
CC: [facility]; Mackenzie AlmaguerNIRALI * DATE OF OPERATION: 03/25/19 - ROOM #353 DATE OF : [birth year] SURGEON: Kennedy Galloway MD. [employer] OFFICER: Paola Romero NP. ANESTHESIOLOGIST: Rah Pizano MD ANESTHESIA: General, endotracheal. PRE-OP DIAGNOSES: Clinically severe obesity and chronic calculous cholecystitis. POST-OP DIAGNOSES: Clinically severe obesity and chronic calculous cholecystitis. OPERATIVE PROCEDURE: Laparoscopic sleeve gastrectomy and laparoscopic cholecystectomy. ESTIMATED BLOOD LOSS: Less than 20 mL. IV FLUIDS: Crystalloids. SPECIMEN: 1. Portion of stomach. 2. Gallbladder and contents. DRAINS: None. COMPLICATIONS: None. COUNTS: The instrument, needle, and sponge counts were correct. DESCRIPTION OF THE PROCEDURE: The patient was brought to the operating room and placed on table supine. Sequential compression device were placed in the both lower extremities. General anesthesia was administered. She was positioned and padded appropriately. She was prepped and draped in usual sterile fashion and received appropriate intravenous antibiotics. Time-out was performed. Local anesthetic was infiltrated in to the skin and soft tissue prior to making each incision. Entry to the abdomen was through a left upper incision accommodating a 5-mm optical trocar. After accessing the peritoneal cavity, carbon dioxide was insufflated to a pressure of 15 mmHg. Under direct visualization, 5-mm trocar was placed in the left upper quadrant laterally and 12-mm trocar was placed in the supraumbilical midline and right upper quadrant and a Mable retractor was placed percutaneously in subxiphoid position and used to elevate the left lobe of the liver. The liver did appear to be fatty infiltrated. The gastric anatomy appeared normal. Mobilization of the stomach proceeded at the greater curvature 6 cm proximal to the pylorus. Utilizing LigaSure, the greater curvature was skeletonized of all vessels and short gastric vessels were taken down completely as well as posterior branch to completely free the fundus. Subsequently, a sleeve gastrectomy was performed over a 40-Faroese bougie using several firings with the Endo ANGELA stapler with purple reinforced cartridges. Staple lines were noted to be intact and hemostatic and the specimen was placed to endoscopic retrieval bag and left in the abdominal cavity for retrieval at the end of the case. Next, the patient's liver retractor was removed and a 5-mm port was placed in the subxiphoid position through the falciform ligament and then a 5-mm trocar was placed in the right upper quadrant laterally. The gallbladder appeared to be chronically inflamed, it was grasped at the fundus and retracted cephalad. There was a large amount of fat investing the gallbladder in the medial portion of gallbladder fossa and the liver and this was taken down using the LigaSure and the gallbladder wall was thus identified. The cystic artery was dissected out and divided with the LigaSure and the cystic duct was dissected out using combination of blunt dissection, hook cautery. The actual duct was noted to have significant scarring around and therefore, it was decided to divide the gallbladder at the end of the infundibulum after applying clips in the site. The gallbladder was then freed from attachments to the liver using the cautery and the Liga-Sure. The gallbladder was freed and placed in the endoscopic retrieval bag. The clips that were left on the infundibulum did not maintain a purchase and subsequently were removed and I placed a 2-0 Vicryl Endoloop around the cystic duct to secure it. Hemostasis was assured. The right upper quadrant was irrigated with 2 L of warm saline until clear. Both specimens were retrieved through the right upper quadrant port, which was enlarged to accommodate the specimens. Each was submitted to pathology. The right upper quadrant port site was then closed with 0-Vicryl with an Endoclose to approximate the muscle fascia in 1 layer. The remaining ports were then removed , the carbon dioxide was released and the skin incisions were all closed with 4- 0 Monocryl subcuticular fashion and then Steri-Strips were applied. The patient tolerated the procedure well, was extubated and transferred to recovery in stable condition. [id number]/[facility] #: [id number] [facility] CENTERJade
[2019-03-25] MEDS: Ketorolac INJ* 30 MG/ML 1 ML VIAL IV SCH (23:56)
[2019-03-26] MEDS: Lactated Ringers 1000 ML Bag* 1,000 ML IV SCH ×2 (01:12→07:45)
[2019-03-26] MEDS: HYDROmorphone INJ1* 1 MG/ML SYRINGE IV SLOW PU PRN ×4 (01:32→19:53)
[2019-03-26] MEDS: Ketorolac INJ* 30 MG/ML 1 ML VIAL IV SCH ×3 (05:59→17:59)
[2019-03-26] MEDS: Heparin VIAL(*) 5000 UNITS/ML VIAL (FIVE THOUSAND) SUBCUT SCH ×3 (06:00→21:30)
[2019-03-26] MEDS ORDERED: Influenza VAC *QUAD* 2019-20* 0.5 ML SYRINGE IM ONE (09:00)
[2019-03-26] MEDS: Famotidine IV* 10 MG/ML 2 ML (20 mg) IV SLOW PU SCH ×2 (09:30→21:30)
[2019-03-26] MEDS ORDERED: Acetaminophen ADULT LIQ* 650 MG/20.3 ML UDC PO PRN (10:43)
[2019-03-26] MEDS ORDERED: HYDROcodone/ACET. 7.5/325 LIQ* 15 ML UDC PO PRN (10:43)
--- NOTE | 2019-03-26 10:50 | PN ---
Progress Note - Progress Note Date of Service: 03/26/19 SOAP: Subjective:gas pains,no flatus;no n/v;ambulating;voiding large amounts [] Objective: Vital Signs Temp 98.1 F 03/26/19 07:35 Pulse 95 03/26/19 07:35 Resp 18 03/26/19 09:51 BP 127/71 03/26/19 07:35 Pulse Ox 93 03/26/19 07:35 Intake & Output 03/25/19 03/26/19 03/26/19 18:59 06:59 18:59 Intake Total 990 989 Output Total 850 1000 Balance 140 -11 Weight 354 lb Intake: IV Fluids 990 989 LR 990 989 Oral 0 Output: Urine 850 1000 lungs:clear bilat;heart:RRR;abd:+bs;all incisions c/d/i with steris,no erythema or active drainage;ext:nontender calves [] Assessment:POD#1 s/p lap sleeve gastrectomy and cholecystectomy;doing well [] Plan:maggie murray inspiron warm compress between shoulder blades ambulate encourage transition to po analgesics []
[2019-03-26] MEDS: Levothyroxine TAB* 25 MCG TAB PO SCH (13:34)
[2019-03-26] MEDS: D5W 1/2 NS KCl 20 Meq 1000 ML* 1,000 ML IV SCH ×2 (15:30→23:31)
[2019-03-26] MEDS: Ondansetron INJ* 2 MG/ML VIAL IV PRN (19:38)
[2019-03-27] MEDS: Ketorolac INJ* 30 MG/ML 1 ML VIAL IV SCH (01:30)
[2019-03-27] MEDS: Heparin VIAL(*) 5000 UNITS/ML VIAL (FIVE THOUSAND) SUBCUT SCH (06:53)
[2019-03-27] MEDS: Levothyroxine TAB* 25 MCG TAB PO SCH (06:56)
[2019-03-27 07:28] VITALS: BP 111/50
[2019-03-27] MEDS: D5W 1/2 NS KCl 20 Meq 1000 ML* 1,000 ML IV SCH (07:36)
[2019-03-27] MEDS: Ondansetron INJ* 2 MG/ML VIAL IV PRN (07:37)
[2019-03-27] MEDS: Famotidine IV* 10 MG/ML 2 ML (20 mg) IV SLOW PU SCH (07:38)
--- NOTE | 2019-03-27 09:06 | PN ---
Progress Note - Progress Note Date of Service: 03/27/19 SOAP: Subjective: Pt comfortable in chair, C/O incisional tenderness. + Flatus tolerating maggie clrs, ambulating well in halls[] Objective: Temp Pulse Resp BP Pulse Ox 98.3 F 69 18 111/50 97 03/27/19 07:27 03/27/19 07:27 03/27/19 07:44 03/27/19 07:27 03/27/19 07:27 Intake & Output 03/26/19 03/27/19 03/27/19 22:59 06:59 14:59 Intake Total 1318 1900 995 Output Total 300 Balance 1018 1900 995 Chest: CTA CVS: RRR ABD: Obese, ND/Incisional tenderness. Incisions sites with steris in place Hypoactive BS's EXT: Calves Non tender] Assessment: POD 2 S/P Lap Viv/Sleeve gastrectomy stable[] Plan: D/C home today. Post op visit arranged, pain meds sent, will prescribe Zofran SL Pt was also seen by Dr Galloway this AM All questions were answered[]
--- NOTE | 2019-03-27 13:18 | DS ---
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 DATE OF DISCHARGE: 03/27/2019. ATTENDING PHYSICIAN: Dr. Kennedy Galloway * (dictated by HEATHER Weber). DIAGNOSES ON ADMISSION: Severe obesity and chronic calculus cholecystitis. DIAGNOSES ON DISCHARGE: Severe obesity and chronic calculus cholecystitis. PROCEDURES PERFORMED: Laparoscopy sleeve gastrectomy and laparoscopic cholecystectomy. HOSPITAL COURSE: The patient was taken to the operating room on 03/25/2019 for the above mentioned procedures. The patient tolerated the procedures well and was then discharged to the recovery room and then to the Surgical Care Unit for postoperative medical care. Postop course was uneventful. On 03/27/2019, postop day number two, the patient was sitting comfortable in the chair at beside, complaining only of incisional tenderness. She has had positive flatus , has been ambulating well in the halls, and tolerating bariatric clear diet. PHYSICAL EXAMINATION: Chest: Clear to auscultation bilaterally. Heart: Regular rate and rhythm. Abdomen: Obese, nondistended. There was some incisional tenderness. The incision site is all covered with Steri-Strips without ecchymosis or erythema. Extremities: Calves are nontender bilaterally. DISCHARGE INSTRUCTIONS: Discharge instructions were reviewed with the patient and given to her in written form regarding her diet, postoperative medications, activity levels, and her follow-up. The patient is to follow-up in the office on 04/03/2019. A prescription for Hydrocodone elixir had been given preoperatively. The patient was also advised to adult strength liquid Tylenol and a prescription for sublingual Zofran was sent to her pharmacy for any postoperative nausea. TIME SPENT: Total time spent on discharge was 30 minutes, greater than half was spent going over the discharge instructions, new medications, follow-up visits, and physical exam. DISPOSITION/CONDITION ON DISCHARGE: The patient is to be discharged home in stable condition on 03/27/2019. HEATHER PEREA [id number]/[facility] #: [id number] MTDD
== END 2019-03-27 10:45 | disposition home or self-care (01) | DRG 403 ==
LOC: AA 09:11 → SSU 18:06
PROVIDERS: ADMIT Surgery; ATTEND Surgery
PROC: 0DB64Z3 Excision of Stomach, Percutaneous Endoscopic Approach, Vertical (ICD-10-PCS; principal; 2019-03-25 11:00)
PROC: 0FT44ZZ Resection of Gallbladder, Percutaneous Endoscopic Approach (ICD-10-PCS; 2019-03-25 11:00)
DX: E66.01 Morbid (severe) obesity due to excess calories (principal); K80.10 Calculus of gallbladder with chronic cholecystitis without obstruction; R16.2 Hepatomegaly with splenomegaly, not elsewhere classified; K44.9 Diaphragmatic hernia without obstruction or gangrene; E78.00 Pure hypercholesterolemia, unspecified; F41.9 Anxiety disorder, unspecified; F32.9 Major depressive disorder, single episode, unspecified; E03.9 Hypothyroidism, unspecified; G47.33 Obstructive sleep apnea (adult) (pediatric); J45.909 Unspecified asthma, uncomplicated; D50.9 Iron deficiency anemia, unspecified; Z83.3 Family history of diabetes mellitus; Z82.49 Family history of ischemic heart disease and other diseases of the circulatory system; Z68.43 Body mass index [BMI] 50.0-59.9, adult; Z97.5 Presence of (intrauterine) contraceptive device; Z80.9 Family history of malignant neoplasm, unspecified; Z72.89 Other problems related to lifestyle; Z23 Encounter for immunization
CPT/HCPCS: 43775; 47562; 81025; 88304; 88307; 88342; 90686; A9270-GY; J0690; J1100; J1170; J1240; J1644; J1885; J2250; J2405; J2704; J3010